=== PATIENT | male | born 1960 | race Caucasian/White ===

== ENCOUNTER 2017-08-27 16:37 | Emergency (ER) | payer OTHER, MEDICARE, MEDICAID ==
[~2017-08-27] VITALS: Ht 177242.5 cm; Wt 93.2 kg
[~2017-08-27 16:37] MED LIST: ALBU18HF2 INH; AMLO10TA PO; ASPI81TA52 PO; BUDE10.2 INH; CLOP75TA35 PO; CYCL-1 PO; FENO145T38 PO; METF500T PO; METO50TA17 PO; OMEP20CA10 PO; PANT40TA4 PO; ROSU40TA PO; SPIIN INH; TRAM50TA2 PO
[2017-08-27] MEDS ORDERED: HYDROcodone/acetaminophen 10/325mg tab PO ONE (19:40)
[2017-08-27] MEDS ORDERED: orphenadrine citrate 60mg/2ml inj. IM ONE (19:40)
[2017-08-27] MEDS ORDERED: ORPH100T2 PO (20:26)
[2017-08-27] MEDS ORDERED: HYDR-565 PO (20:26)
[2017-08-27 20:43] VITALS: BP 136/82
== END 2017-08-27 20:35 | disposition home or self-care (01) ==
LOC: ER 16:38
DX: S16.1XXA Strain of muscle, fascia and tendon at neck level, initial encounter (principal); S40.012A Contusion of left shoulder, initial encounter; G89.29 Other chronic pain; J44.9 Chronic obstructive pulmonary disease, unspecified; I25.10 Atherosclerotic heart disease of native coronary artery without angina pectoris; K21.9 Gastro-esophageal reflux disease without esophagitis; E11.9 Type 2 diabetes mellitus without complications; E78.00 Pure hypercholesterolemia, unspecified; I25.2 Old myocardial infarction; Z98.890 Other specified postprocedural states; Z79.82 Long term (current) use of aspirin; Z79.84 Long term (current) use of oral hypoglycemic drugs; Z79.899 Other long term (current) drug therapy; Z91.030 Bee allergy status; W11.XXXA Fall on and from ladder, initial encounter; Y93.89 Activity, other specified; Y92.89 Other specified places as the place of occurrence of the external cause; Y99.8 Other external cause status
CPT/HCPCS: 73030; 96372; 99284; J2360

== ENCOUNTER 2017-08-28 00:54 | Emergency (ER) | payer OTHER, MEDICARE, MEDICAID ==
[~2017-08-28] VITALS: Ht 160 cm; Wt 83.9 kg
[~2017-08-28 00:54] MED LIST changes: +HYDR-565 PO; +ORPH100T2 PO
[2017-08-28 00:59] VITALS: BP 167/98
[2017-08-28] MEDS ORDERED: ketorolac trometh. 30mg/ml inj. IM ONE (01:10)
== END 2017-08-28 01:58 | disposition home or self-care (01) ==
LOC: ER 00:54
DX: S46.812D Strain of other muscles, fascia and tendons at shoulder and upper arm level, left arm, subsequent encounter (principal); G89.29 Other chronic pain; I10 Essential (primary) hypertension; J44.9 Chronic obstructive pulmonary disease, unspecified; I25.10 Atherosclerotic heart disease of native coronary artery without angina pectoris; K21.9 Gastro-esophageal reflux disease without esophagitis; E11.9 Type 2 diabetes mellitus without complications; E78.00 Pure hypercholesterolemia, unspecified; I25.2 Old myocardial infarction; Z98.890 Other specified postprocedural states; Z79.82 Long term (current) use of aspirin; Z79.84 Long term (current) use of oral hypoglycemic drugs; Z79.899 Other long term (current) drug therapy; Z91.030 Bee allergy status; W11.XXXD Fall on and from ladder, subsequent encounter
CPT/HCPCS: 96372; 99283; A4565; J1885

== ENCOUNTER 2018-10-25 13:12 | Emergency (ER) | payer MEDICARE, MEDICAID, OTHER ==
[~2018-10-25] VITALS: Ht 160 cm; Wt 71.8 kg
[~2018-10-25 13:12] MED LIST changes: +CHOL400T PO; -CYCL-1 PO; +FLO0.4C PO; -HYDR-565 PO; +MULT1TAB74 PO; -OMEP20CA10 PO; -ORPH100T2 PO; +RANO500T3 PO
[2018-10-25 14:07] LABS: BASOPHILS % (AUTO) 0.8 % (0-1); EOSINOPHILS # (AUTO) 0.1 X10'3 (0-0.9); EOSINOPHILS % (AUTO) 1.2 % (0-6); HEMATOCRIT 39.1 % (42.0-52.0); HEMOGLOBIN 12.9 g/dl (14.0-17.9); LYMPHOCYTES # (AUTO) 1.7 X10'3 (1.1-4.8); LYMPHOCYTES % (AUTO) 28.3 % (21-51); MEAN CORPUSCULAR HEMOGLOBIN 28.8 PG (27.0-31.0); MEAN CORPUSCULAR HGB CONC 33.1 g/dL (33.0-36.5); MEAN CORPUSCULAR VOLUME 87.2 FL (78-98); MEAN PLATELET VOLUME 7.9 FL (7.4-10.4); MONOCYTES # (AUTO) 0.4 X10'3 (0-0.9); MONOCYTES % (AUTO) 6.3 % (2-12); NEUTROPHILS # (AUTO) 3.8 X10'3 (1.8-7.7); NEUTROPHILS % (AUTO) 63.4 % (42-75); PLATELET COUNT 415 X10'3 (140-440); RED BLOOD COUNT 4.49 X10'6 (4.70-6.10); RED CELL DISTRIBUTION WIDTH 13.7 % (11.5-14.5); WHITE BLOOD COUNT 5.9 X10'3 (4.5-11.0)
[2018-10-25 14:09] LABS: ALANINE AMINOTRANSFERASE 22 U/L (12-78); ALKALINE PHOSPHATASE 54 IU/L (46-116); ANION GAP 12 (8-16); ASPARTATE AMINO TRANSFERASE 20 U/L (10-37); BILIRUBIN,TOTAL 0.3 MG/DL (0.1-1.0); BLOOD UREA NITROGEN 18 MG/DL (7-18); BUN/CREATININE RATIO 17.1 (5.4-32.0); CALCIUM 9.6 MG/DL (8.5-10.1); CHLORIDE 102 MMOL/L (99-107); CREATININE 1.05 MG/DL (0.60-1.10); GLUCOSE 101 MG/DL (70-104); POTASSIUM 3.5 MMOL/L (3.5-5.1); SODIUM 139 MMOL/L (135-145); TOTAL CARBON DIOXIDE 25.2 MMOL/L (24-32); TOTAL PROTEIN 8.1 G/DL (6.4-8.2); eGFR 73 ML/MIN
[2018-10-25 14:11] LABS: PARTIAL THROMBOPLASTIN TIME 30 SECONDS (22-32); PROTHROMBIN TIME 10.3 SECONDS (9.0-12.0)
[2018-10-25] MEDS ORDERED: HYDROcodone/acetaminophen 5mg/325mg tablet PO ONE (15:50)
[2018-10-25 16:04] LABS: D-DIMER 1.09 MG/L FEU (0-0.50)
[2018-10-25] MEDS ORDERED: normal saline 1000ML IV soln IVB ONE (16:30)
[2018-10-25 17:09] LABS: CLARITY,URINE CLOUDY (Clear); COLOR,URINE STRAW (Yellow); GLUCOSE, URINE NEGATIVE (Neg); KETONES,URINE NEGATIVE (Neg); LEUKOCYTE ESTERASE ,URINE NEGATIVE (Neg); NITRITES, URINE NEGATIVE (Neg); OCCULT BLOOD,URINE NEGATIVE (Neg); PROTEIN,URINE NEGATIVE (Neg); UA COLLECTION TYPE CLN CATCH MIDSTREAM
[2018-10-25 17:15] LABS: SQUAMOUS EPITHELIAL CELL,UR FEW /LPF (FEW); TRANSITIONAL EPI CELLS,URINE FEW /HPF
[2018-10-25 17:16] LABS: COARSE GRANULAR CAST 0-3 /LPF (NEGATIVE)
[2018-10-25 17:17] LABS: AMORPHOUS PHOSPHATES 4+; BACTERIA,URINE FEW /HPF (Neg); MUCUS STRANDS FEW /LPF (Neg); RBC,URINE 0-2 /HPF (0-2); WBC,URINE NONE SEEN /HPF (0-4)
[2018-10-25] MEDS ORDERED: iohexol 350MG/ML 100ml bottle IV ONE (17:20)
--- NOTE | 2018-10-25 17:26 | NUR ---
pt out to ct via wheelchair with industrial engineering director
[2018-10-25] MEDS ORDERED: HYDR-4383 PO (18:15)
[2018-10-25] MEDS ORDERED: DOXY100C43 PO (18:15)
[2018-10-25] MEDS ORDERED: CefTRIAXone 250MG IM Kit w/LIDOcaine IM ONE (18:25)
[2018-10-25 19:32] VITALS: BP 143/78
== END 2018-10-25 19:34 | disposition home or self-care (01) ==
LOC: ER 13:15
DX: R07.89 Other chest pain (principal); N45.1 Epididymitis; G89.18 Other acute postprocedural pain; I25.119 Atherosclerotic heart disease of native coronary artery with unspecified angina pectoris; E78.00 Pure hypercholesterolemia, unspecified; I10 Essential (primary) hypertension; I25.2 Old myocardial infarction; J44.9 Chronic obstructive pulmonary disease, unspecified; K21.9 Gastro-esophageal reflux disease without esophagitis; E11.9 Type 2 diabetes mellitus without complications; G89.29 Other chronic pain; Z98.61 Coronary angioplasty status; Z98.890 Other specified postprocedural states; Z91.030 Bee allergy status; Z79.82 Long term (current) use of aspirin; Z79.84 Long term (current) use of oral hypoglycemic drugs; Z79.899 Other long term (current) drug therapy; Z56.0 Unemployment, unspecified
CPT/HCPCS: 36415; 71045; 71275; 80053; 81001; 84484; 85025; 85379; 85610; 85730; 93005; 96360; 96372; 99284; J0696; J7030; Q9967

== ENCOUNTER 2019-01-26 20:58 | Emergency (ER) | payer MEDICARE, MEDICAID, OTHER ==
[~2019-01-26] VITALS: Ht 160 cm; Wt 80.0 kg
[~2019-01-26 20:58] MED LIST changes: +HYDR-4383 PO
[2019-01-26 21:03] VITALS: BP 171/104
[2019-01-26] MEDS ORDERED: HYDROcodone/acetaminophen 5mg/325mg tablet PO ONE (21:25)
== END 2019-01-26 21:44 | disposition home or self-care (01) ==
LOC: ER 20:58
DX: R10.31 Right lower quadrant pain (principal); I25.10 Atherosclerotic heart disease of native coronary artery without angina pectoris; E78.00 Pure hypercholesterolemia, unspecified; I10 Essential (primary) hypertension; I25.2 Old myocardial infarction; J44.9 Chronic obstructive pulmonary disease, unspecified; K21.9 Gastro-esophageal reflux disease without esophagitis; E11.9 Type 2 diabetes mellitus without complications; G89.29 Other chronic pain; Z98.890 Other specified postprocedural states; Z87.891 Personal history of nicotine dependence; Z91.030 Bee allergy status; Z79.82 Long term (current) use of aspirin; Z79.84 Long term (current) use of oral hypoglycemic drugs; Z79.899 Other long term (current) drug therapy; Z56.0 Unemployment, unspecified
CPT/HCPCS: 99282; 99283

== ENCOUNTER 2019-03-09 16:43 | Emergency (ER) | payer MEDICARE, MEDICAID, OTHER ==
[~2019-03-09] VITALS: Ht 160 cm; Wt 69.5 kg
[2019-03-09 16:48] VITALS: BP 151/78
[2019-03-09] MEDS ORDERED: orphenadrine citrate 60mg/2ml inj. IM ONE (17:50)
[2019-03-09] MEDS ORDERED: ketorolac tromethamine 15mg/ml inj. IM ONE (17:50)
[2019-03-09] MEDS ORDERED: METH500T PO (17:51)
== END 2019-03-09 18:27 | disposition home or self-care (01) ==
LOC: ER 16:43
DX: S39.012A Strain of muscle, fascia and tendon of lower back, initial encounter (principal); I25.10 Atherosclerotic heart disease of native coronary artery without angina pectoris; E78.00 Pure hypercholesterolemia, unspecified; I10 Essential (primary) hypertension; I25.2 Old myocardial infarction; J44.9 Chronic obstructive pulmonary disease, unspecified; K21.9 Gastro-esophageal reflux disease without esophagitis; E11.9 Type 2 diabetes mellitus without complications; G89.29 Other chronic pain; F41.9 Anxiety disorder, unspecified; Z56.0 Unemployment, unspecified; Z95.5 Presence of coronary angioplasty implant and graft; Z98.890 Other specified postprocedural states; Z91.030 Bee allergy status; Z79.82 Long term (current) use of aspirin; Z79.899 Other long term (current) drug therapy; X50.1XXA Overexertion from prolonged static or awkward postures, initial encounter; Y93.89 Activity, other specified; Y92.89 Other specified places as the place of occurrence of the external cause; Y99.9 Unspecified external cause status
CPT/HCPCS: 96372; 99284; J1885; J2360

== ENCOUNTER 2020-04-17 17:17 | Emergency (ER) | payer OTHER, MEDICARE, MEDICAID ==
[~2020-04-17] VITALS: Ht 172.7 cm; Wt 90.0 kg
[~2020-04-17 17:17] MED LIST changes: +METH500T PO; +MULT-620 PO; -MULT1TAB74 PO
[2020-04-17] MEDS ORDERED: METH-360 PO (18:29)
[2020-04-17] MEDS ORDERED: NAPR-56 PO (18:29)
[2020-04-17] MEDS ORDERED: ketorolac tromethamine 15mg/ml inj. IV ONE (18:30)
[2020-04-17] MEDS ORDERED: orphenadrine citrate 60mg/2ml inj. IM ONE (18:30)
--- NOTE | 2020-04-17 18:36 | NUR ---
Per dimple [place] collar removed.
[2020-04-17 18:55] VITALS: BP 124/86
== END 2020-04-17 18:56 | disposition home or self-care (01) ==
LOC: ER 17:18
DX: S33.5XXA Sprain of ligaments of lumbar spine, initial encounter (principal); I25.10 Atherosclerotic heart disease of native coronary artery without angina pectoris; E78.00 Pure hypercholesterolemia, unspecified; I10 Essential (primary) hypertension; I25.2 Old myocardial infarction; J44.9 Chronic obstructive pulmonary disease, unspecified; K21.9 Gastro-esophageal reflux disease without esophagitis; E11.9 Type 2 diabetes mellitus without complications; G89.29 Other chronic pain; F41.9 Anxiety disorder, unspecified; Z98.890 Other specified postprocedural states; Z72.89 Other problems related to lifestyle; Z56.0 Unemployment, unspecified; Z91.030 Bee allergy status; Z79.82 Long term (current) use of aspirin; Z79.899 Other long term (current) drug therapy; W18.39XA Other fall on same level, initial encounter; Y93.A3 Activity, aerobic and step exercise; Y92.89 Other specified places as the place of occurrence of the external cause; Y99.8 Other external cause status
CPT/HCPCS: 72125; 72128; 72131; 96372; 96374; 99285; J1885; J2360

== ENCOUNTER 2020-05-14 16:15 | Emergency (ER) | payer OTHER, MEDICARE, MEDICAID ==
[~2020-05-14] VITALS: Ht 160 cm; Wt 79.7 kg
[~2020-05-14 16:15] MED LIST changes: +METH-360 PO; +NAPR-56 PO; -PANT40TA4 PO; +PANT40TA54 PO
[2020-05-14 16:43] LABS: BASOPHILS # (AUTO) 0.1 X10'3 (0-0.2); BASOPHILS % (AUTO) 1.3 % (0-1); EOSINOPHILS # (AUTO) 0.5 X10'3 (0-0.9); EOSINOPHILS % (AUTO) 5.6 % (0-6); HEMATOCRIT 42.2 % (42.0-52.0); HEMOGLOBIN 14.1 g/dl (14.0-17.9); LYMPHOCYTES # (AUTO) 2.4 X10'3 (1.1-4.8); MEAN CORPUSCULAR HEMOGLOBIN 29.5 PG (27.0-31.0); MEAN CORPUSCULAR HGB CONC 33.4 g/dL (33.0-36.5); MEAN CORPUSCULAR VOLUME 88.2 FL (78-98); MEAN PLATELET VOLUME 8.1 FL (7.4-10.4); MONOCYTES # (AUTO) 0.5 X10'3 (0-0.9); MONOCYTES % (AUTO) 5.9 % (2-12); NEUTROPHILS # (AUTO) 5.3 X10'3 (1.8-7.7); NEUTROPHILS % (AUTO) 60.2 % (42-75); PLATELET COUNT 317 X10'3 (140-440); RED BLOOD COUNT 4.79 X10'6 (4.70-6.10); RED CELL DISTRIBUTION WIDTH 13.8 % (11.5-14.5); WHITE BLOOD COUNT 8.8 X10'3 (4.5-11.0)
[2020-05-14] MEDS ORDERED: ketorolac trometh. 30mg/ml inj. IM ONE (16:45)
[2020-05-14 17:00] LABS: ALANINE AMINOTRANSFERASE 28 U/L (12-78); ALBUMIN 4.2 G/DL (3.4-5.0); ALBUMIN/GLOBULIN RATIO 1.2 (1.1-1.5); ALKALINE PHOSPHATASE 39 IU/L (46-116); ANION GAP 8 (8-16); ASPARTATE AMINO TRANSFERASE 24 U/L (10-37); BILIRUBIN,TOTAL 0.3 MG/DL (0.1-1.0); BLOOD UREA NITROGEN 17 MG/DL (7-18); BUN/CREATININE RATIO 13.4 (5.4-32.0); CALCIUM 8.9 MG/DL (8.5-10.1); CHLORIDE 105 MMOL/L (99-107); CREATININE 1.27 MG/DL (0.60-1.10); GLUCOSE 159 MG/DL (70-104); POTASSIUM 3.4 MMOL/L (3.5-5.1); SODIUM 139 MMOL/L (135-145); TOTAL CARBON DIOXIDE 25.7 MMOL/L (24-32); TOTAL PROTEIN 7.6 G/DL (6.4-8.2); eGFR 58 ML/MIN
[2020-05-14] MEDS ORDERED: HYDROcodone/acetaminophen 10/325mg tab PO ONE (17:25)
[2020-05-14 17:34] VITALS: BP 134/78
== END 2020-05-14 17:40 | disposition home or self-care (01) ==
LOC: ER 16:15
DX: R07.89 Other chest pain (principal); R11.2 Nausea with vomiting, unspecified; R06.02 Shortness of breath; I25.10 Atherosclerotic heart disease of native coronary artery without angina pectoris; E78.00 Pure hypercholesterolemia, unspecified; I10 Essential (primary) hypertension; I25.2 Old myocardial infarction; K21.9 Gastro-esophageal reflux disease without esophagitis; E11.9 Type 2 diabetes mellitus without complications; G89.29 Other chronic pain; F41.9 Anxiety disorder, unspecified; Z98.61 Coronary angioplasty status; Z98.890 Other specified postprocedural states; Z56.0 Unemployment, unspecified; Z91.030 Bee allergy status; Z79.82 Long term (current) use of aspirin; Z79.899 Other long term (current) drug therapy
CPT/HCPCS: 36415; 71045; 80053; 83880; 84484; 85025; 93005; 96372; 99285; J1885

== ENCOUNTER 2021-03-02 19:11 | Emergency (ER) | payer OTHER, MEDICARE, MEDICAID ==
[~2021-03-02] VITALS: Ht 160 cm; Wt 81.8 kg
[~2021-03-02 19:11] MED LIST changes: +CLOP75TA34 PO; -CLOP75TA35 PO; -NAPR-56 PO
[2021-03-02 19:13] VITALS: BP 117/72
[2021-03-02] MEDS ORDERED: ketorolac trometh. 30mg/ml inj. IM ONE (20:40)
== END 2021-03-02 21:12 | disposition home or self-care (01) ==
LOC: ER 19:12
DX: S93.401A Sprain of unspecified ligament of right ankle, initial encounter (principal); I10 Essential (primary) hypertension; E78.5 Hyperlipidemia, unspecified; J44.9 Chronic obstructive pulmonary disease, unspecified; I25.10 Atherosclerotic heart disease of native coronary artery without angina pectoris; E11.9 Type 2 diabetes mellitus without complications; Z95.5 Presence of coronary angioplasty implant and graft; Z87.891 Personal history of nicotine dependence; Z91.030 Bee allergy status; Z79.82 Long term (current) use of aspirin; Z79.899 Other long term (current) drug therapy; Z56.0 Unemployment, unspecified; W18.30XA Fall on same level, unspecified, initial encounter; Z91.81 History of falling; Y93.89 Activity, other specified; Y92.89 Other specified places as the place of occurrence of the external cause; Y99.8 Other external cause status
CPT/HCPCS: 73610; 96372; 99284; J1885

== ENCOUNTER 2021-10-07 13:28 | Emergency (ER) | payer OTHER, MEDICARE, MEDICAID ==
[~2021-10-07] VITALS: Ht 160 cm; Wt 69.5 kg
[2021-10-07 14:31] VITALS: BP 148/127
[2021-10-07] MEDS ORDERED: iohexol 350MG/ML 100ml bottle IV ONE (14:45)
[2021-10-07] MEDS ORDERED: MESSAGE TO NURSING PO NR (14:50)
[2021-10-07 15:22] LABS: BASOPHILS % (AUTO) 0.3 % (0-1); EOSINOPHILS # (AUTO) 0.9 X10'3 (0-0.9); HEMATOCRIT 45.2 % (42.0-52.0); HEMOGLOBIN 15.2 g/dl (14.0-17.9); LYMPHOCYTES # (AUTO) 1.9 X10'3 (1.1-4.8); LYMPHOCYTES % (AUTO) 13.4 % (21-51); MEAN CORPUSCULAR HEMOGLOBIN 29.1 PG (27.0-31.0); MEAN CORPUSCULAR HGB CONC 33.7 g/dL (33.0-36.5); MEAN CORPUSCULAR VOLUME 86.2 FL (78-98); MEAN PLATELET VOLUME 8.2 FL (7.4-10.4); MONOCYTES # (AUTO) 0.8 X10'3 (0-0.9); MONOCYTES % (AUTO) 5.8 % (2-12); NEUTROPHILS # (AUTO) 10.8 X10'3 (1.8-7.7); NEUTROPHILS % (AUTO) 74.5 % (42-75); PLATELET COUNT 358 X10'3 (140-440); RED BLOOD COUNT 5.24 X10'6 (4.70-6.10); RED CELL DISTRIBUTION WIDTH 14.2 % (11.5-14.5); WHITE BLOOD COUNT 14.5 X10'3 (4.5-11.0)
[2021-10-07 15:38] LABS: ALANINE AMINOTRANSFERASE 24 U/L (12-78); ALBUMIN 4.5 G/DL (3.4-5.0); ALBUMIN/GLOBULIN RATIO 1.1 (1.1-1.5); ALKALINE PHOSPHATASE 61 IU/L (46-116); ANION GAP 10 (8-16); ASPARTATE AMINO TRANSFERASE 22 U/L (10-37); BILIRUBIN,TOTAL 0.4 MG/DL (0.1-1.0); BLOOD UREA NITROGEN 16 MG/DL (7-18); BUN/CREATININE RATIO 18.2 (5.4-32.0); CALCIUM 9.7 MG/DL (8.5-10.1); CHLORIDE 106 MMOL/L (99-107); CREATININE 0.88 MG/DL (0.60-1.10); GLUCOSE 98 MG/DL (70-104); POTASSIUM 3.8 MMOL/L (3.5-5.1); SODIUM 143 MMOL/L (135-145); TOTAL CARBON DIOXIDE 27.3 MMOL/L (24-32); TOTAL PROTEIN 8.7 G/DL (6.4-8.2); eGFR 88 ML/MIN
[2021-10-07 15:42] LABS: LIPASE 100 U/L (73-393)
[2021-10-07 16:36] LABS: CLARITY,URINE CLEAR (Clear); GLUCOSE, URINE NEGATIVE (Neg); KETONES,URINE NEGATIVE (Neg); LEUKOCYTE ESTERASE ,URINE NEGATIVE (Neg); NITRITES, URINE NEGATIVE (Neg); OCCULT BLOOD,URINE NEGATIVE (Neg); PROTEIN,URINE NEGATIVE (Neg); UROBILINOGEN,URINE 0.2 E.U/dL (0.2-1.0)
[2021-10-07 16:39] LABS: COLOR,URINE STRAW (Yellow); UA COLLECTION TYPE CLN CATCH MIDSTREAM
== END 2021-10-07 17:54 | disposition home or self-care (01) ==
LOC: ER 13:29
DX: R10.84 Generalized abdominal pain (principal); R10.32 Left lower quadrant pain; R11.2 Nausea with vomiting, unspecified; I25.10 Atherosclerotic heart disease of native coronary artery without angina pectoris; E78.00 Pure hypercholesterolemia, unspecified; I10 Essential (primary) hypertension; I25.2 Old myocardial infarction; J44.9 Chronic obstructive pulmonary disease, unspecified; K21.9 Gastro-esophageal reflux disease without esophagitis; E11.9 Type 2 diabetes mellitus without complications; G89.29 Other chronic pain; Z56.0 Unemployment, unspecified; Z72.89 Other problems related to lifestyle; Z95.5 Presence of coronary angioplasty implant and graft; Z91.030 Bee allergy status; Z79.82 Long term (current) use of aspirin; Z79.899 Other long term (current) drug therapy
CPT/HCPCS: 36415; 71275; 74174; 80053; 81003; 83690; 84484; 85025; 85610; 93005; 99285; Q9967

== ENCOUNTER 2022-04-19 07:24 | Emergency (ER) | payer OTHER, MEDICARE, MEDICAID ==
[~2022-04-19] VITALS: Ht 160 cm; Wt 72.7 kg
[2022-04-19] MEDS ORDERED: ketorolac trometh inj. 60 MG/2 ML VIAL IM ONE (11:15)
[2022-04-19] MEDS ORDERED: LIDOcaine 5% patch TP STA (11:15)
[2022-04-19] MEDS ORDERED: CYCL5TAB PO (11:29)
[2022-04-19 13:19] VITALS: BP 120/81
== END 2022-04-19 13:21 | disposition home or self-care (01) ==
LOC: ER 07:24
DX: G89.29 Other chronic pain (principal); M54.2 Cervicalgia; M54.59 Other low back pain; I11.9 Hypertensive heart disease without heart failure; J44.9 Chronic obstructive pulmonary disease, unspecified; K21.9 Gastro-esophageal reflux disease without esophagitis; F41.9 Anxiety disorder, unspecified; E11.9 Type 2 diabetes mellitus without complications; Z91.030 Bee allergy status; Z79.899 Other long term (current) drug therapy; Z79.82 Long term (current) use of aspirin
CPT/HCPCS: 96372; 99284; J1885

== ENCOUNTER 2022-10-19 21:32 | Emergency (ER) | payer OTHER, MEDICARE, MEDICAID ==
[~2022-10-19] VITALS: Ht 160 cm; Wt 76.4 kg
[~2022-10-19 21:32] MED LIST changes: +CYCL5TAB PO
[2022-10-19 21:33] VITALS: BP 171/93
[2022-10-19 22:11] LABS: BASOPHILS # (AUTO) 0.1 X10'3 (0-0.2); EOSINOPHILS # (AUTO) 0.2 X10'3 (0-0.9); EOSINOPHILS % (AUTO) 2.3 % (0-6); HEMATOCRIT 44.1 % (42.0-52.0); HEMOGLOBIN 14.5 g/dl (14.0-17.9); LYMPHOCYTES # (AUTO) 2.6 X10'3 (1.1-4.8); LYMPHOCYTES % (AUTO) 31.2 % (21-51); MEAN CORPUSCULAR HEMOGLOBIN 28.2 PG (27.0-31.0); MEAN CORPUSCULAR HGB CONC 32.8 g/dL (33.0-36.5); MEAN CORPUSCULAR VOLUME 85.8 FL (78-98); MEAN PLATELET VOLUME 8.3 FL (7.4-10.4); MONOCYTES # (AUTO) 0.9 X10'3 (0-0.9); MONOCYTES % (AUTO) 10.5 % (2-12); NEUTROPHILS # (AUTO) 4.6 X10'3 (1.8-7.7); PLATELET COUNT 263 X10'3 (140-440); RED BLOOD COUNT 5.14 X10'6 (4.70-6.10); WHITE BLOOD COUNT 8.4 X10'3 (4.5-11.0)
[2022-10-19 22:19] LABS: ALANINE AMINOTRANSFERASE 26 U/L (12-78); ALBUMIN 4.4 G/DL (3.4-5.0); ALBUMIN/GLOBULIN RATIO 1.2 (1.1-1.5); ALKALINE PHOSPHATASE 83 IU/L (46-116); ANION GAP 13 (8-16); ASPARTATE AMINO TRANSFERASE 21 U/L (10-37); BILIRUBIN,TOTAL 0.2 MG/DL (0.1-1.0); BLOOD UREA NITROGEN 18 MG/DL (7-18); BUN/CREATININE RATIO 14.9 (5.4-32.0); CALCIUM 9.3 MG/DL (8.5-10.1); CHLORIDE 102 MMOL/L (99-107); CREATININE 1.21 MG/DL (0.60-1.10); GLUCOSE 105 MG/DL (70-104); POTASSIUM 3.7 MMOL/L (3.5-5.1); SODIUM 142 MMOL/L (135-145); TOTAL CARBON DIOXIDE 27.2 MMOL/L (24-32); eGFR 61 ML/MIN
[2022-10-19 22:27] LABS: MAGNESIUM 1.9 MG/DL (1.5-2.4)
== END 2022-10-20 00:34 | disposition home or self-care (01) ==
LOC: ER 21:32
DX: M79.602 Pain in left arm (principal); E78.00 Pure hypercholesterolemia, unspecified; I10 Essential (primary) hypertension; J44.9 Chronic obstructive pulmonary disease, unspecified; K21.9 Gastro-esophageal reflux disease without esophagitis; E11.9 Type 2 diabetes mellitus without complications; G89.29 Other chronic pain; M54.50 Low back pain, unspecified; Z91.030 Bee allergy status; Z56.0 Unemployment, unspecified
CPT/HCPCS: 36415; 71045; 80053; 83735; 83880; 84484; 85025; 93005; 99285

== ENCOUNTER 2023-04-06 18:12 | Emergency (ER) | payer OTHER, MEDICARE, MEDICAID ==
[~2023-04-06] VITALS: Ht 160 cm; Wt 75.0 kg
[2023-04-06] MEDS ORDERED: HYDROcodone/acetaminophen 10/325mg tab PO ONE (19:00)
[2023-04-06 19:10] VITALS: BP 173/96; PULSE 89; RESP 17; TEMP 99; O2SAT 97
[2023-04-06] MEDS ORDERED: IBUP-1986 PO (19:18)
[2023-04-06] MEDS ORDERED: TRAM50TA2 PO (19:18)
[2023-04-06] MEDS ORDERED: LIDO700A32 TOP (19:18)
[2023-04-06] MEDS ORDERED: cyclobenzaprine 10mg tablet PO ONE (21:05)
[2023-04-06] MEDS ORDERED: ketorolac trometh inj. 60 MG/2 ML VIAL IM ONE (21:10)
== END 2023-04-06 21:28 | disposition home or self-care (01) ==
LOC: ER 18:13
DX: G89.29 Other chronic pain (principal); M54.9 Dorsalgia, unspecified; M54.2 Cervicalgia; V87.7XXA Person injured in collision between other specified motor vehicles (traffic), initial encounter; Y93.89 Activity, other specified; Y92.89 Other specified places as the place of occurrence of the external cause; Y99.8 Other external cause status
CPT/HCPCS: 72125; 96372; 99285; J1885

== ENCOUNTER 2023-08-23 07:39 | Emergency (ER) | payer OTHER, MEDICARE, MEDICAID ==
[~2023-08-23] VITALS: Ht 160 cm; Wt 73.6 kg
[~2023-08-23 07:39] MED LIST changes: -ALBU18HF2 INH; -AMLO10TA PO; -BUDE10.2 INH; +CARV25TA56 PO; +CHLO25TA68 PO; -CLOP75TA34 PO; +EZET10TA6 PO; -FENO145T38 PO; -FLO0.4C PO; -HYDR-4383 PO; +LISI1TAB49 PO; +METF-900 PO; -METF500T PO; -METH-360 PO; +METH-604 PO; -METH500T PO; -METO50TA17 PO; -MULT-620 PO; +NITR0.4T48 SL; -RANO500T3 PO; -SPIIN INH; +TIOT4MIS3 IH; +[UNRECOGNIZED DRUG - OTHER] PO
[2023-08-23 08:27] VITALS: TEMP 97.8
[2023-08-23 08:56] LABS: ALANINE AMINOTRANSFERASE 32 U/L (12-78); ALBUMIN 4.1 G/DL (3.4-5.0); ALKALINE PHOSPHATASE 58 IU/L (46-116); ANION GAP 9 (8-16); ASPARTATE AMINO TRANSFERASE 17 U/L (10-37); BILIRUBIN,TOTAL 0.5 MG/DL (0.1-1.0); BLOOD UREA NITROGEN 14 MG/DL (7-18); BUN/CREATININE RATIO 17.3 (10.0-20.0); CALCIUM 9.8 MG/DL (8.5-10.1); CHLORIDE 99 MMOL/L (99-107); CREATININE 0.81 MG/DL (0.60-1.10); GLUCOSE 114 MG/DL (70-104); POTASSIUM 3.8 MMOL/L (3.5-5.1); SODIUM 136 MMOL/L (135-145); TOTAL CARBON DIOXIDE 27.7 MMOL/L (24-32); TOTAL PROTEIN 8.4 G/DL (6.4-8.2); eCRCL 75 ML/MIN; eGFR > 90 ML/MIN
[2023-08-23 08:57] LABS: BASOPHILS # (AUTO) 0.2 X10'3 (0-0.2); EOSINOPHILS # (AUTO) 0.1 X10'3 (0-0.9); EOSINOPHILS % (AUTO) 1.5 % (0-6); HEMATOCRIT 44.5 % (42.0-52.0); HEMOGLOBIN 14.8 g/dl (14.0-17.9); LYMPHOCYTES # (AUTO) 1.4 X10'3 (1.1-4.8); LYMPHOCYTES % (AUTO) 15.4 % (21-51); MEAN CORPUSCULAR HEMOGLOBIN 29.1 PG (27.0-31.0); MEAN CORPUSCULAR HGB CONC 33.3 g/dL (33.0-36.5); MEAN CORPUSCULAR VOLUME 87.3 FL (78-98); MEAN PLATELET VOLUME 7.8 FL (7.4-10.4); MONOCYTES # (AUTO) 0.7 X10'3 (0-0.9); MONOCYTES % (AUTO) 7.6 % (2-12); NEUTROPHILS # (AUTO) 6.7 X10'3 (1.8-7.7); NEUTROPHILS % (AUTO) 73.5 % (42-75); PLATELET COUNT 225 X10'3 (140-440); RED CELL DISTRIBUTION WIDTH 13.9 % (11.5-14.5); WHITE BLOOD COUNT 9.2 X10'3 (4.5-11.0)
[2023-08-23 09:05] LABS: PRO BRAIN NATRIURETIC PEPTIDE 34 PG/ML (0-125)
[2023-08-23 09:08] LABS: APTT 32 SECONDS (22-32); PROTHROMBIN TIME 10.4 SECONDS (9.0-12.0)
[2023-08-23 09:34] LABS: AMYLASE 55 U/L (25-115); FREE T4 (FREE THYROXINE) 0.95 NG/DL (0.73-1.40); LIPASE 22 U/L (16-77)
[2023-08-23 09:36] LABS: THYROID STIMULATING HORMONE 0.99 ulU/ml (0.34-4.50)
[2023-08-23 10:07] LABS: BILIRUBIN,URINE NEGATIVE (Neg); CLARITY,URINE CLEAR (Clear); COLOR,URINE STRAW (Yellow); GLUCOSE, URINE NEGATIVE (Neg); KETONES,URINE NEGATIVE (Neg); LEUKOCYTE ESTERASE ,URINE NEGATIVE (Neg); NITRITES, URINE NEGATIVE (Neg); OCCULT BLOOD,URINE TRACE-INTACT (Neg); PH,URINE 5.5 (4.8-8.0); PROTEIN,URINE NEGATIVE (Neg); UA COLLECTION TYPE CLN CATCH MIDSTREAM; UROBILINOGEN,URINE 0.2 E.U/dL (0.2-1.0)
[2023-08-23 10:13] LABS: SQUAMOUS EPITHELIAL CELL,UR FEW /LPF (FEW)
[2023-08-23 10:14] LABS: BACTERIA,URINE FEW /HPF (Neg); RBC,URINE 0-2 /HPF (0-2); WBC,URINE 0-4 /HPF (0-4)
[2023-08-23] MEDS ORDERED: iohexol 300mg/ml 100ml inj. ONE (11:00)
[2023-08-23] MEDS ORDERED: mag hydrox/Alum hydrox/simeth 30ml oral suspension PO ONE (11:10)
[2023-08-23 13:27] VITALS: BP 135/81; PULSE 76; RESP 15; O2SAT 97
== END 2023-08-23 13:31 | disposition home or self-care (01) ==
LOC: ER 07:40
DX: K29.00 Acute gastritis without bleeding (principal); I25.10 Atherosclerotic heart disease of native coronary artery without angina pectoris; E78.00 Pure hypercholesterolemia, unspecified; I25.2 Old myocardial infarction; J44.9 Chronic obstructive pulmonary disease, unspecified; E11.9 Type 2 diabetes mellitus without complications; G89.29 Other chronic pain; Z95.5 Presence of coronary angioplasty implant and graft; Z56.0 Unemployment, unspecified; Z91.030 Bee allergy status; Z79.899 Other long term (current) drug therapy; Z79.82 Long term (current) use of aspirin; Z79.01 Long term (current) use of anticoagulants
CPT/HCPCS: 36415; 71045; 74177; 80053; 81001; 82150; 83690; 83880; 84439; 84443; 84484; 85025; 85610; 85730; 93005; 99285; Q9967; 70450; 70496; 70498

== ENCOUNTER 2023-11-05 14:51 | Emergency (ER) | payer OTHER, MEDICARE, MEDICAID ==
[~2023-11-05] VITALS: Ht 160 cm; Wt 76.6 kg
[2023-11-05 14:52] VITALS: BP 155/87; PULSE 84; TEMP 98; O2SAT 98
[2023-11-05 15:55] VITALS: RESP 18
[2023-11-05] MEDS: ketorolac tromethamine 15mg/ml inj. IM ONE (15:55)
== END 2023-11-05 16:06 | disposition home or self-care (01) ==
LOC: ER 14:51
DX: G89.29 Other chronic pain (principal); M54.9 Dorsalgia, unspecified; I50.9 Heart failure, unspecified; J44.9 Chronic obstructive pulmonary disease, unspecified; K21.9 Gastro-esophageal reflux disease without esophagitis; E78.00 Pure hypercholesterolemia, unspecified; I10 Essential (primary) hypertension; F41.9 Anxiety disorder, unspecified; V98.8XXA Other specified transport accidents, initial encounter; Y93.89 Activity, other specified; Y92.89 Other specified places as the place of occurrence of the external cause; Y99.8 Other external cause status
CPT/HCPCS: 96372; 99283; J1885; A6449

== ENCOUNTER 2024-02-06 21:54 | Emergency (ER) | payer OTHER, MEDICARE, MEDICAID ==
[~2024-02-06] VITALS: Ht 160 cm; Wt 77.3 kg
[~2024-02-06 21:54] MED LIST changes: -CYCL5TAB PO
[2024-02-06 21:58] VITALS: TEMP 97.7
[2024-02-06] MEDS: meclizine 12.5mg tablet PO ONE (22:17)
[2024-02-06 22:18] LABS: BASOPHILS # (AUTO) 0.1 X10'3 (0-0.2); BASOPHILS % (AUTO) 1.2 % (0-1); EOSINOPHILS # (AUTO) 0.2 X10'3 (0-0.9); HEMATOCRIT 41.5 % (42.0-52.0); LYMPHOCYTES # (AUTO) 2.8 X10'3 (1.1-4.8); LYMPHOCYTES % (AUTO) 26.7 % (21-51); MEAN CORPUSCULAR HEMOGLOBIN 29.1 PG (27.0-31.0); MEAN CORPUSCULAR HGB CONC 33.7 g/dL (33.0-36.5); MEAN CORPUSCULAR VOLUME 86.2 FL (78-98); MEAN PLATELET VOLUME 7.8 FL (7.4-10.4); MONOCYTES # (AUTO) 1.1 X10'3 (0-0.9); MONOCYTES % (AUTO) 10.7 % (2-12); NEUTROPHILS # (AUTO) 6.3 X10'3 (1.8-7.7); NEUTROPHILS % (AUTO) 59.4 % (42-75); PLATELET COUNT 289 X10'3 (140-440); RED BLOOD COUNT 4.81 X10'6 (4.70-6.10); RED CELL DISTRIBUTION WIDTH 13.7 % (11.5-14.5); WHITE BLOOD COUNT 10.5 X10'3 (4.5-11.0)
[2024-02-06 22:34] LABS: ALBUMIN 3.7 G/DL (3.4-5.0); ANION GAP 7 (8-16); BLOOD UREA NITROGEN 17 MG/DL (7-18); BUN/CREATININE RATIO 20.7 (10.0-20.0); CALCIUM 9.2 MG/DL (8.5-10.1); CHLORIDE 102 MMOL/L (99-107); CREATININE 0.82 MG/DL (0.60-1.10); GLUCOSE 116 MG/DL (70-104); PRO BRAIN NATRIURETIC PEPTIDE < 30 PG/ML (0-125); SODIUM 140 MMOL/L (135-145); TOTAL CARBON DIOXIDE 30.6 MMOL/L (24-32); eCRCL 74 ML/MIN; eGFR > 90 ML/MIN
[2024-02-06 22:37] LABS: POTASSIUM 4.3 MMOL/L (3.5-5.1)
[2024-02-06] MEDS ORDERED: nitroGLYCERIN 0.4mg SUBLingual tab SL PRN (23:05)
[2024-02-06] MEDS: ondansetron/PF 4mg/2ml inj IV ONE (23:13)
[2024-02-06] MEDS ORDERED: LISI1TAB51 PO (23:22)
[2024-02-06] MEDS ORDERED: NITR0.4T51 SL (23:24)
[2024-02-06] MEDS ORDERED: CHOL100053 PO (23:25)
[2024-02-07 00:31] VITALS: BP 137/80; PULSE 83; RESP 16; O2SAT 94
== END 2024-02-07 00:34 | disposition left against medical advice (07) ==
LOC: ER 21:55
DX: R07.89 Other chest pain (principal); E78.00 Pure hypercholesterolemia, unspecified; I10 Essential (primary) hypertension; J44.9 Chronic obstructive pulmonary disease, unspecified; K21.9 Gastro-esophageal reflux disease without esophagitis; E11.9 Type 2 diabetes mellitus without complications; Z91.030 Bee allergy status; Z79.82 Long term (current) use of aspirin; Z79.899 Other long term (current) drug therapy
CPT/HCPCS: 36415; 71045; 80048; 83880; 84484; 85025; 93005; 96374; 99285; J2405; J8597

== ENCOUNTER 2025-02-03 08:15 | Outpatient (CLI) | payer MEDICARE, MEDICAID ==
[~2025-02-03 08:15] MED LIST changes: -CHLO25TA68 PO; +CHOL100053 PO; -CHOL400T PO; -LISI1TAB49 PO; +LISI1TAB51 PO; -METF-900 PO; +METH-1026 PO; -METH-604 PO; -NITR0.4T48 SL; +NITR0.4T51 SL; -[UNRECOGNIZED DRUG - OTHER] PO
--- NOTE | 2025-02-03 09:26 | RADIOLOGY REPORT ---
CT Chest without intravenous contrast INDICATION: ENCNTR SCREEN FOR MALIGNANT NEOPLASM OF RESPIRATORY ORGANS TECHNIQUE: Multidetector spiral CT of the chest was performed from the lung apices to the upper abdom en. Axial, coronal and sagittal multiplanar reformats were performed. Radiation dose : Chest: CTDI volume is 2 mGy. Dose-length product is 109 mGy*cm The dose indicators for CT are the volume computed tomography (CT) dose index (CTDIvol) and the dose length product (DLP), and are measured in units of mGy and mGy-cm, respectively. These indicators are not patient dose, but values generated from the CT scanner acquisition factors. The report includes radiation exposure data for exposures received during this examination. Comparison: None Findings: Lower neck: Normal thyroid. Lungs: No focal consolidation. Atelectasis and scarring in the lung bases. Heart/Vascular Structures: Normal heart size. No pericardial effusion. Severe coronary artery calcifi cation. Lymph Nodes: No adenopathy Pleura: No pleural effusion or significant pneumothorax. Musculoskeletal: No acute osseous abnormality. Soft tissues: Normal. Upper abdomen: Limited portions of the upper abdomen are unremarkable. IMPRESSION: 1. No suspicious pulmonary nodule. Lung rads 1-negative. Radiation optimization: All CT scans at this facility use at least one of these dose optimization neeraj hniques: Automated exposure control mA and/or kV adjustment per patient size (includes targeted exams where dose is matched to clinical indication) or iterative reconstruction. HS:Y
== END 2025-02-03 23:59 | disposition home or self-care (01) ==
LOC: RAD 08:15
PROVIDERS: ATTEND General Practice
DX: Z12.2 Encounter for screening for malignant neoplasm of respiratory organs (principal); J98.11 Atelectasis; J98.4 Other disorders of lung; Z87.891 Personal history of nicotine dependence
CPT/HCPCS: 71271

== ENCOUNTER 2025-03-18 06:44 | Inpatient (IN) | payer OTHER, MEDICARE, MEDICAID ==
[2025-03-18] VITALS (7 sets, daily range): BP systolic 96–156; BP diastolic 68–87; PULSE 72–81; RESP 14–16; TEMP 97.1–97.6; O2SAT 95–98
[~2025-03-18] VITALS: Ht 160 cm; Wt 76.9 kg
--- NOTE | 2025-03-18 06:50 | ELECTROCARDIOGRAPH REPORT ---
[facility] Test Date: 2025-03-18 Test Time: 06:48:15 Pat Name: QUYEN MC Department: [facility] Patient ID: [facility]-[id number] Room: [place] [address] Gender: M Housekeeping Lead: : 1960 Requested By: SAM ADHIKARI Order Number: [id number] Reading MD: Dr. César Jean Baptiste Measurements Intervals [place] Rate: 85 P: 69 OR: 139 QRS: 70 QRSD: 128 T: 38 QT: 408 QTc: 486 Interpretive Statements Sinus rhythm Right bundle branch block Electronically Signed On 03-22-2025 20:04:[address] César Jean Baptiste Please click the below link to view image of tracing.
--- NOTE | 2025-03-18 07:24 | RADIOLOGY REPORT ---
CHEST RADIOGRAPH Indication: CP Technique: Single frontal view of the chest was obtained Comparison: DI CHEST,SINGLE VIEW on DOS: 02/06/24 FINDINGS: Lines and Tubes: None Lungs: No focal consolidation. Pleura: No effusion. No pneumothorax. Cardiomediastinal contours: Unremarkable Bones: No acute osseous abnormality. IMPRESSION: 1. No acute cardiopulmonary disease.
--- NOTE | 2025-03-18 07:35 | Physician Documentation ---
History of Present Illness ~ Chief Complaint: Chest Pain Stated Complaint: CHEST PAIN Time Seen by MD: 07:34 Primary Medical Doctor: [facility] Source: family () HPI 64 yom h/o CAD s/p PCI last 2015, DM2, HTN, HLD, COPD, prior Tobacco use p/w chest pressure. Woke him from sleep at 330 am. feels like something sitting on his chest. Has not taken any nitro ("It doesn't work"). No SOB. No cough or fevers. Medication Reconciliation Allergies: Coded Allergies: venom-honey bee (Unverified Allergy, Severe, Breathing problems and localized swelling, 02/06/24) Scheduled Aspirin (Aspirin EC), 1 TABLET PO DAILY, (Reported) Carvedilol (Carvedilol), 1 TAB PO Q12H, (Reported) Cholecalciferol (Vitamin D3) (Vitamin D3), 1 CAP PO DAILY, (Reported) Ezetimibe (Zetia), 1 TAB PO DAILY, (Reported) Lisinopril/Hydrochlorothiazide (Lisinopril-Hctz 20-12.5 mg Tab), 1 TAB PO DAILY, (Reported) Methimazole (methimazole tablet), 1 TAB PO DAILY, (Reported) Pantoprazole Sodium (Pantoprazole Sodium), 1 TAB PO BID, (Reported) Rosuvastatin Calcium* (Crestor*), 1 TABLET PO DAILY, (Reported) Tiotropium Br/Olodaterol HCl (Stiolto Respimat Inhal [place]), 2 PUFFS IH DAILY, (Reported) Scheduled PRN Nitroglycerin SL* (Nitrostat SL*), 1 TAB SL Q5MIN PRN for Chest pain Q5min PRNx3-call MD, (Reported) Tramadol HCl (Tramadol HCl), 1 TABLET PO Q6H PRN for pain, (Reported) Past Medical History Past Medical History: Angina, Coronary Artery Disease, High Cholesterol, Hypertension, Myocardial Infarction, COPD, GERD, Hernia, Diabetes, Chronic Pain, Chronic Back Pain, Anxiety Past Surgical History: angioplasty, orthopedic surgeries, other Other Past Surgical History: hernia repair Patient History: (DM Type 2) Diabetes mellitus type 2 LIVER CANCER, BONE CANCER, SMOKER No Family History of: (CABG) Coronary artery bypass grafting (CAD) Coronary arteriosclerosis (CHF) Congestive heart failure (COPD) Chronic obstructive lung disease (CVA) Cerebrovascular accident (Cancer) Malignant carcinoid tumor (DM Type1) Diabetes mellitus type 1 ([place]) Myocardial infarction (PVD) Peripheral vascular disease (TIA) Transient ischemic attack Alzheimer's disease Aortic aneurysm Asthma Cardiac arrest Hypercholesterolemia Other Past Family History: NONE Alcohol Use: Sober Drug Use: none Lives with: Spouse Lives In: Home Occupation: unemployed Review of Systems All Other Systems at this time: Reviewed and Negative Physical Exam Vital Signs: RN Vital Signs have been reviewed: Yes, Temperature: 97.3, Source: Temporal, Heart Rate: 86, Respiratory Rate: 11, BP: 197/115, Pulse Oximetry: 99, Weight: 76.900 Physical Exam well appearing no distress chest ctab no murmur abdomen soft nt neuro awake alert oriented cn2- 12 intact. no peripheral edema Progress Progress Note recheck at 833 still having chest pain despite 2 NG 852 d/w hospitalist who graciously accepts for admission Results/Orders Reviewed/noted all lab results: Yes Results/Orders Orders - SAM ADHIKARI MD Chest,Single View (03/18/25 06:46) Monitor (03/18/25 06:46) Saline Lock (03/18/25 06:46) Oxygen (03/18/25 06:46) Hs Troponin I W Calculations (03/18/25 08:46) Hs Troponin I W Calculations (03/18/25 09:46) Page Hospitalist (03/18/25 08:33) Fill Out Med Reconciliation (03/18/25 08:33) Ringers Solution, Lacted (Lactated Ringe (03/18/25 08:40) Completed Orders - SAM ADHIKARI MD Chest,Single View (03/18/25 06:46) Electrocardiogram (03/18/25 06:46) Aspirin 81mg Chew Tablet (Aspirin 81mg C (03/18/25 07:55) Nitroglycerin Sublingual Tab (Nitrostat (03/18/25 07:55) Cbc/Diff (03/18/25 08:01) Morphine 4mg/Ml Inj. (Morphine Inj.) (03/18/25 08:35) Medications Received in ER Medications (Trade) Dose Ordered Sig/Toya Route PRN Reason Start Time Stop Time Status Last Admin Dose Admin (aspirin 81MG chew tablet) 324 mg ONCE ONCE PO 03/18/25 07:55 03/18/25 07:56 DC 03/18/25 08:21 324 MG (Nitrostat SL tablet) 0.4 mg Q5MIN ONCE SL 03/18/25 07:55 03/18/25 07:56 DC 03/18/25 08:21 0.4 MG Lactated Ringer's 1,000 ml @ 1,000 mls/hr ONCE ONCE IV 03/18/25 08:40 03/18/25 09:39 03/18/25 08:42 1,000 MLS/HR Vital Signs 03/18/25 03/18/25 03/18/25 06:50 07:16 07:18 Temp 97.3 Pulse 86 Resp 16 11 B/P (MAP) 197/115 Pulse Ox 99 99 O2 Delivery Room Air* O2 Flow Rate 0 FiO2 21 Laboratory Tests Test 03/18/25 06:50 03/18/25 07:56 03/18/25 08:42 CBC Comment Chemistry Comments White Blood Count 8.6 Red Blood Count 5.14 Hemoglobin 14.7 Hematocrit 44.3 Mean Corpuscular Volume 86.2 Mean Corpuscular Hemoglobin 28.5 Mean Corpuscular Hemoglobin Concent 33.1 Red Cell Distribution Width 14.0 Platelet Count 258 Mean Platelet Volume 7.6 Neutrophils (%) (Auto) 71.2 Lymphocytes (%) (Auto) 18.0 L Monocytes (%) (Auto) 8.5 Eosinophils (%) (Auto) 1.6 Basophils (%) (Auto) 0.7 Neutrophils # (Auto) 6.1 Lymphocytes # (Auto) 1.5 Monocytes # (Auto) 0.7 Eosinophils # (Auto) 0.1 Basophils # (Auto) 0.1 Sodium Level 138 Potassium Level 4.1 Chloride Level 102 Carbon Dioxide Level 26.6 Anion Gap 9 Blood Urea Nitrogen 17 Creatinine 0.92 Estimated GFR/1.73 m2 83 BUN/Creatinine Ratio 18.5 Glucose Level 131 H Calcium Level 9.3 Troponin I High Sensitivity 7 Pro-B-Type Natriuretic Peptide < 30 Albumin 4.0 EKG/XRAY/CT/US/VASC/MRI EKG : Additional Comment EKG time 648 indication chest pain Right bundle rate NSR rate 85, normal axis no st or t wave abn Heart Score: Heart Score Response (Comments) Value History Highly Suspicious 2 EKG Repolarization Disturb 1 Age 45-64 1 Risk Factors >3 or Hx ASHD 2 Troponin Normal limit 0 Total 6 Medical Decision Making Additional info obtained from: old records Findings d/c summary 2023 echo 01/21 Normal LV size and wall thickness. Overall systolic function is normal. LVEF is 65-70%. RV is normal size and function. Elevated right heart pressures as noted above. The left atrium size is normal. Trileaflet aortic valve that appears mildly sclerotic without stenosis or insufficiency. Mild mitral valve annular calcification without stenosis or regurgitation. Tricuspid valve appears normal with trace regurgitation. Trace pericardial effusion without hemodynamic compromise. Prominent anterior epicardial fat pad is present. Differential Dx:Considerations: Include: angina, aortic dissection, chest wall pain Departure Disposition: ADMITTED INPATIENT Admitted to Inpatient Unit: to hospitalist Impression: Primary Impression: Chest pain Qualified Codes: I20.0 - Unstable angina Referrals: NO PRIMARY CARE PROVIDER (PCP) Signature Scribe Signature: na Attestation: SAM Mar MD Mar 18, 2025 07:35
[2025-03-18 08:26] LABS: MEAN PLATELET VOLUME 7.6 FL (7.4-10.4); RED CELL DISTRIBUTION WIDTH 14.0 % (11.5-14.5)
[2025-03-18 08:29] LABS: CREATININE 0.92 MG/DL (0.60-1.10); PRO BRAIN NATRIURETIC PEPTIDE < 30 PG/ML (0-125); TOTAL CARBON DIOXIDE 26.6 MMOL/L (24-32); eCRCL 65 ML/MIN; eGFR 83 ML/MIN
[2025-03-18] MEDS: ringers solution, lacted 1,000 ML IV ONE (08:42)
[2025-03-18] MEDS ORDERED: HYDROcodone/acetaminophen 10/325mg tab PO PRN (09:40)
[2025-03-18] MEDS ORDERED: mag hydrox/Alum hydrox/simeth 30ml oral suspension PO PRN (09:40)
[2025-03-18] MEDS ORDERED: magnesium hydroxide 30ml (MOM) UD suspension PO PRN (09:40)
[2025-03-18] MEDS ORDERED: magnesium Cl slow-release 64mg tablet PO PRN (09:40)
[2025-03-18] MEDS ORDERED: potassium Cl 40MEQ/1/2NS 520ml 520 ML IV PRN (09:40)
[2025-03-18] MEDS ORDERED: potassium Cl 20 mEq SR tablet PO PRN ×2 (09:40)
[2025-03-18] MEDS ORDERED: magnesium sulf-water 2g/50mL 50 ML IV PRN (09:40)
[2025-03-18] MEDS ORDERED: magnesium sulf-water 4G/100mL 100 ML IV PRN (09:40)
[2025-03-18] MEDS: morphine 4 MG/ML inj SYRINge IV ONE (10:15)
[2025-03-18] MEDS: ondansetron/PF 4mg/2ml inj IV PRN (10:16)
--- NOTE | 2025-03-18 10:35 | HISTORY AND PHYSICAL-Residence ---
History & Physical Providers to CC Resident Creating Document: JACK RIVERA, SALTY ~ History of Present Illness Reason for Admit\Complaint: chest pain and backpain. History of Present Illness This is a 64-year-old male with past history of hypertension, type 2 diabetes coronary artery disease status post 9 stents (last in 2016) ,Came to ED with chief complaint of chest pain. Patient was in his house sleeping when the chest pain started at 3:30 a.m. patient described the pain pressure , continous,severe ,graded as 10/10, radiating to back , back pain is aggravting by lying down. Chest pain was not associated with nausea vomiting, sweating, shortness of breath ,palpitations. At 6:00 a.m. when patient checked the blood pressure it was 200/100. His Atomic Process Engineer is Dr. Mclaughlin Patient had similar type of chest pain in 2016 and undergone stent 2016. Allergies: Coded Allergies: venom-honey bee (Unverified Allergy, Severe, Breathing problems and localized swelling, 02/06/24) Home Medications Home Medications Active Reported Vitamin D3 (Cholecalciferol (Vitamin D3)) 250 Mcg (72637 Unit) Capsule 1 Cap PO DAILY 30 Days Nitrostat SL* (Nitroglycerin) 0.4 Mg Tablet 1 Tab SL Q5MIN PRN Lisinopril-Hctz 20-12.5 mg Tab (Lisinopril/Hydrochlorothiazide) 20 Mg-12.5 Mg Tablet 1 Tab PO DAILY Stiolto Respimat Inhal [place] (Tiotropium Br/Olodaterol HCl) 2.5 Mcg-2.5 Mcg/Actuation Mist.inhal 2 Puffs IH DAILY methimazole tablet (Methimazole) 5 Mg Tablet 1 Tab PO DAILY 30 Days Zetia (Ezetimibe) 10 Mg Tablet 1 Tab PO DAILY 30 Days Tramadol HCl 50 Mg Tablet 1 Tablet PO Q6H PRN Crestor* (Rosuvastatin Calcium) 40 Mg Tablet 1 Tablet PO DAILY Pantoprazole Sodium 40 Mg Tablet.dr 1 Tab PO BID Aspirin EC (Aspirin) 81 Mg Tablet.dr 1 Tablet PO DAILY Past Medical History Past Medical History Coronary artery disease status post 9 stents. Hypertension Type 2 diabetes COPD Chronic back pain Hyperthyroidism Past Surgical History Surgical History Comment Meniscal surgeries done in both knees TURP done Inguinal hernia surgeries Family History Family History: (DM Type 2) Diabetes mellitus type 2 FH: diabetes mellitus GRANDFATHER OR GRANDMOTHER FH: ovarian cancer MOTHER, Name: KAYLEEN WHITEHEAD, , Age: 58, Cause: Cancer FH: prostate cancer GRANDFATHER OR GRANDMOTHER LIVER CANCER, BONE CANCER, SMOKER No Family History of: (CABG) Coronary artery bypass grafting (CAD) Coronary arteriosclerosis (CHF) Congestive heart failure (COPD) Chronic obstructive lung disease (CVA) Cerebrovascular accident (Cancer) Malignant carcinoid tumor (DM Type1) Diabetes mellitus type 1 ([place]) Myocardial infarction (PVD) Peripheral vascular disease (TIA) Transient ischemic attack Alzheimer's disease Aortic aneurysm Asthma Cardiac arrest Hypercholesterolemia Past Social History Social History Comment Quit smoking 17 years ago before that used to smoke half a pack to two packs a day for more than 20 years. Quit drinking alcohol 27 years ago Quit marjiuana, coacaine, methamphetamine 27 years ago. Lives in home with . Alcohol Use: Sober Drug Use: None Lives with: Spouse Lives In: Home Occupation: unemployed ROS All Other Systems: Reviewed and Negative Constitutional: Denies: no symptoms reported, see HPI, chills, diaphoresis, fever, malaise, weakness, other Eyes: Denies: no symptoms reported, see HPI, pain, discharge, blurred vision, double vision, itching, photophobia, redness, tearing, other ENT: Denies: no symptoms reported, see HPI, ear pain, ear bleeding, ear discharge, hearing loss, ear ringing, nose pain, nose bleeding, nose congestion, nose discharge, throat pain, throat swelling, voice change, mouth pain, mouth bleeding, mouth swelling, other Respiratory: Denies: no symptoms reported, see HPI, cough, orthopnea, shortness of breath, SOB with exertion, SOB at rest, stridor, wheezing, hemoptysis, pain with breathing, other Cardiovascular: Reports: chest pain Gastrointestinal: Denies: no symptoms reported, see HPI, abdomen distended, abdominal pain, nausea, vomiting, diarrhea, constipated, melena, hematemesis, hematochezia, rectal bleeding, rectal pain, dysphagia, poor appetite, poor fluid intake, other Genitourinary: Denies: no symptoms reported, see HPI, burning, discharge, dysuria, frequency, flank pain, hematuria, incontinence, pain, decreased urine output, urgency, other Male Genitalia: Denies: no symptoms reported, see HPI, penile discharge, penile sore, testicular pain, testicular swelling, other Neurological: Denies: no symptoms reported, see HPI, speech problem, headache, dizziness, fainting, tingling, left sided numbness, right sided numbness, left sided weakness, right sided weakness, problems walking, unable to move lower ext, unable to move upper ext, petit mal seizures, tonic-clonic seizures, cognitive dysfunction, other Musculoskeletal: Denies: no symptoms reported, see HPI, pain, swelling, back pain, gout, joint pain, joint swelling, muscle pain, muscle swelling, muscle stiffness, neck pain, other Integumentary: Denies: no symptoms reported, see HPI, rash, itching, lesions, lumps, bruise(s), wound(s), laceration(s), dryness, change in color, other Allergic/Immunologic: Denies: no symptoms reported, see HPI, hives, itching, frequent infections, difficulty healing, other Endocrine: Denies: no symptoms reported, see HPI, excessive sweating, flushing, intolerance to cold, intolerance to heat, increased hunger, increased thrist, increased urine, unexplained weight gain, unexplained weight loss, other Psychiatric: Denies: no symptoms reported, see HPI, depression, anxiety, sleeplessness, hopeless, suicidal, hallucinations, other Exam Vitals: Vital Signs Date Time Temp Pulse Resp B/P (MAP) Pulse Ox O2 Delivery O2 Flow Rate FiO2 03/18/25 08:52 80 10 102/78 (86) 96 0 03/18/25 07:16 Room Air* 21 03/18/25 06:50 97.3 General: General: General: Awake and Alert, no acute distress. HEENT: Conjunctiva pink, Sclera clear, Mucus Membranes moist. Neck: Supple without masses and tenderness. Resp: Unlabored. Lungs clear to auscultation bilaterally. Heart: Regular Rate and rhythm, normal S1 and S2 without murmur, rub or gallop. Abdomen: Soft and tender left lower quadrant, no guarding and rigidity. Extremities: No cyanosis,clubbing or edema. Skin: Warm and Dry. Diagnostic Data Last Recorded Lab Results: 03/18/25 0756 03/18/25 0756 Advance Care Planning Advanced Care plannin - 30 Minutes (I spent 17 minutes in discussing various measures rescucitating measures, the patient choose to a be a full code.) Additional Plan This is a 64-year-old male with past history of hypertension, type 2 diabetes coronary artery disease status post 9 stents (last in 2016). Patient was in his house when the chest pain started at 3:30 a.m, which was severe, pressure like chest pain radiating to back. History of CAD status post 9 stents. angina equivalent chest pain troponin negative ECG non significant recevied 324 mg of aspirin in ED started on aspirin 81 mg daily started statin on 40 mg daily. nitroglycerin 0.4 mg prn Patient is on telemetry monitoring. Echocardiogram ordered. Lexiscan ordered Hypertension Hydrochrothiazide 12.5 mg/lisinopril 20 mg metoprolol 25 mg BID. Diabetes Mellitus HbA1c 6.8 start patient on low supplement protocol Hyperlipidemia Eztemibe 10 mg daily and atorvastatin 40 mg lipid panel ordered Hyperthyroidism Methimazole 5 mg daily. TSH ordered COPD,not in acute excaerbation. Patient is taking 2 inhaler puffs daily and his copd is controlled no shortness of breath. DVT prophylaxis enoxaparin 40 mg Code Status: Full code Diet: Heart Healthy diet Jack Rivera Internal Medicine Resident PGY1 Patient is seen and examined agree with the above I am going to order an aspirin statin and a Lexiscan Date of Service: Mar 18, 2025 Billing Provider: ERIC SON MD Common Visit Codes: [id number] INP/OBS CARE (HIGH) JACK RIVERA, RES Mar 18, 2025 10:35 ERIC SON MD Mar 19, 2025 11:44
[2025-03-18 10:46] LABS: PRO BRAIN NATRIURETIC PEPTIDE < 30 PG/ML (0-125)
[2025-03-18] MEDS ORDERED: metoprolol tartrate 1mg/ml inj IV PRN (12:05)
[2025-03-18] MEDS ORDERED: regadenoson 0.4mg/5ml syringe IV PRN (12:05)
[2025-03-18] MEDS ORDERED: aminophylline 250mg/10ml inj. IV PRN (12:05)
[2025-03-18] MEDS: HYDROcodone/acetaminophen 5mg/325mg tablet PO PRN (12:25)
[2025-03-18] MEDS ORDERED: dextrose 50%-water 50ml dispensing syringe IV PRN ×2 (15:45)
[2025-03-18] MEDS ORDERED: glucagon, human recombinant 1mg kit SUBCUT PRN (15:45)
[2025-03-18] MEDS ORDERED: DEXTROSE 15 GM of carb/4 tabs (each vial/BOTTLE has 4 tablets) PO PRN ×2 (15:45)
[2025-03-18] MEDS ORDERED: ipratropium/albuterol 3ml nebule NEB PRN (15:50)
[2025-03-18] MEDS: INSULIN LISPRO 100 UNIT/ML INSULN.PEN MULTI-DOSE SQ SCH (17:00)
[2025-03-18] MEDS: metoprolol succinate 25mg (24-HOUR) SR. Tablet PO SCH (18:17)
[2025-03-18] MEDS: docusate sod 100mg capsule PO SCH (20:00)
[2025-03-18] MEDS: K and/or MAG REPLACEMENT MC SCH (20:00)
[2025-03-19 02:00] VITALS: BP 124/75; PULSE 76; RESP 14; TEMP 97.1; O2SAT 96
[2025-03-19 06:28] LABS: MEAN PLATELET VOLUME 7.6 FL (7.4-10.4); RED CELL DISTRIBUTION WIDTH 14.0 % (11.5-14.5)
[2025-03-19 06:30] VITALS: BP 140/87; PULSE 77; RESP 14; TEMP 97.8; O2SAT 98
[2025-03-19 06:41] LABS: INR 1.0 INR
[2025-03-19 06:49] LABS: CHOL/HDL RATIO 2.6 (0.00-4.99); CREATININE 0.96 MG/DL (0.60-1.10); LDL CHOLESTEROL 68 MG/DL (50-100); TOTAL CARBON DIOXIDE 31.5 MMOL/L (24-32); eCRCL 63 ML/MIN; eGFR 79 ML/MIN
[2025-03-19] MEDS: enoxaparin 40mg/0.4ml syringe SUBCUT SCH (07:36)
[2025-03-19 10:30] VITALS: BP 111/82; PULSE 86; RESP 12; TEMP 97.8; O2SAT 96
--- NOTE | 2025-03-19 17:40 | DISCHARGE SUMMARY-Residence ---
Discharge Summary Providers to CC Resident Creating Document: STEPHANIE RIVERA RES ~ Discharge Summary Admission Diagnosis: chest pain Hospital Course DATE OF ADMISSION: 03/18/2025 DATE OF AMA: 03/19/2025 Labs at the time of AMA WBC: 10 RBC: 5.25 Platelet count: 245 Creatinine 0.96 Pro Bnp <30 done on 03/18/2025. Imaging findings Chest X-ray: No acute cardiopulmonary disease. Echocardiogram. Normal LV size and wall thickness. Overall systolic function is normal. LVEF is 65-70%. Discharge Diagnosis\Comment: Chest pain, non cardiac vs cardiac. ACS could not be ruled out. Operations\Procedures: none Consultants: none Complications: none Condition on DC: Stable Discharge Summary: HPI This is a 64-year-old male with past history of hypertension, type 2 diabetes coronary artery disease status post 9 stents (last in 2016) ,Came to ED with chief complaint of chest pain. Patient was in his house sleeping when the chest pain started at 3:30 a.m. patient described the pain pressure , continous,severe ,graded as 10/10, radiating to back , back pain is aggravting by lying down. Chest pain was not associated with nausea vomiting, sweating, shortness of breath ,palpitations. At 6:00 a.m. when patient checked the blood pressure it was 200/100. His Buttonhole Facer is Dr. Mclaughlin Patient had similar type of chest pain in 2016 and undergone stent 2016. Hospital Course Patient was admitted for angina equivalent chest pain, tropnin were negative, ecg was not signicant.Recevied 324 mg of aspirin in ER initially and put on aspirin 81 mg daily, was also prescribed statin 40 mg daily. Echocardiogram was ordered which showed EF of 65-70%, lexiscan was also ordered but patient denied. ACS could not be ruled out. Hypertension Continued home medication on Hydrochrothiazide 12.5 mg/lisinopril 20 mg and metoprolol 25 mg BID. Diabetes Mellitus HbA1c 6.8 started patient on low insulin protocol Hyperlipidemia lipid panel were normal Eztemibe 10 mg daily and atorvastatin 40 mg Hyperthyroidism continued home medication Methimazole 5 mg daily. TSH 1.22 COPD,not in acute excaerbation. Patient is taking 2 inhaler puffs daily and his copd is controlled no shortness of breath. DVT prophylaxis was given enoxaparin 40 mg. Patient left AMA, i have explain to the patient about risk of leaving AMA but patient still decided to leave. *Problems/Diagnosis: (1) Chest pain Status: Resolved Total Time Spent on D/C: > 30 Minutes Date of Service: Mar 19, 2025 Billing Provider: ERIC SON MD Common Visit Codes: 16076-TSD/OBS DISCH DAY >30min STEPHANIE RIVERA, RES Mar 19, 2025 17:38 ERIC SON MD Mar 20, 2025 10:21
--- NOTE | 2025-03-19 18:23 | CARDIOLOGY REPORT ---
APPROVED REPORT EXAM: Comprehensive 2D, Doppler, and color-flow Echocardiogram. Patient Location: 3014 A Blood Pressure: 111/82 mmHg Heart Rate: 80 bpm Rhythm: SINUS Indications CHEST PAIN STENTS X9 (LAST IN 2015) Chute Feeder: Osmani Mir MD Previous echo: 01/04/24 [facility] (EF 65-70%, trace TR, trace PE w/o compromise, prominent anterior epicardi al fat pad) 2D Dimensions RVDd 3.1 cm LA Diam4.3 cm IVSd 1.1 (0.7-1.1cm) LVDd 4.1 cm PWd 1.2 (0.7-1.1cm) RA Major3.8 cm IVSs 1.2 (0.8-1.2cm) RA Minor3.1 cm LVDs 2.3 (2.5-4.0cm) PWs 1.3 (0.8-1.2cm) LVOT Diameter 1.88 (1.8-2.4cm) LVEF(%) 70.1 (>50%) Ao Asc Diam.2.71 cmFS (%) 43.5 % SV 56.2 ml CO 4.4 L/min M-Mode Dimensions Left Atrium(MM) 3.91 (2.5-4.0cm) Aortic Root 2.97 (2.2-3.7cm) Aortic Cusp Exc 1.94 (1.5-2.0cm) MV EPSS 0.4 (<0.5cm) Biplane 2D LA Volumes LA ESV Index 18.52 mL/m2 Aortic Valve AoV Peak Renny. 132.8 cm/s AoV VTI 22.6 cm AO Peak GR. 7.1 mmHg AO Mean GR. 4 mmHg LVOT VTI 17.85 cm LVOT Peak Renny. 106.6 cm/s ADAM(VTI)/BSA 2.18 cm2/m2 ADAM (VTI) 2.18 cm2 Mitral Valve MV E Velocity 74.4 cm/s MV Peak Gr. 3 mmHg MV DECEL TIME 300 ms MV A Velocity 96.1 cm/s MV PHT 44 ms E/A Ratio 0.8 MVA (PHT) 5.00 cm2 MV VMax91.6 cm/s TDI Medial E' P. V 8.92 cm/s E/Medial E' 8.3 Tricuspid Valve TR P. Velocity 247 cm/s RAP ESTIMATE 10 mmHg TR Peak Gr. 24 mmHg RVSP 34 mmHg Pulmonary Vein S1 Velocity 56.1 cm/s D2 Velocity 60.6 cm/s PVa Ollbkbcw00.4 cm/s PVa [id number] msec LEFT VENTRICLE Normal LV size and wall thickness. Overall systolic function is normal. LVEF is 65-70%. RIGHT VENTRICLE RV is normal size and function. RVSP is estimated at 34 mmHg. Thickened RV free wall. ATRIA LA size is normal. RA size is normal. AORTIC VALVE Trileaflet AV appears mildly sclerotic without stenosis or insufficiency. MITRAL VALVE Mild MV annular calcification without stenosis. Trace regurgitation. TRICUSPID VALVE TV appears structurally normal with trace regurgitation. PULMONIC VALVE Normal PV without stenosis, physiologic insufficiency. GREAT VESSELS The aortic root is normal in size. The ascending aorta is normal in size. PERICARDIUM Trace circumferential pericardial effusion without evidence of hemodynamic compromise. Prominent ante rior epicardial fat pad is present. Other Information Study Quality: Adequate Conclusion Normal LV size and wall thickness. Overall systolic function is normal. LVEF is 65-70%. RV is normal size and function. RVSP is estimated at 34 mmHg. Thickened RV free wall. LA size is normal. Trileaflet AV appears mildly sclerotic without stenosis or insufficiency. Mild MV annular calcification without stenosis. Trace regurgitation. TV appears structurally normal with trace regurgitation. Trace circumferential pericardial effusion without evidence of hemodynamic compromise. Prominent ante rior epicardial fat pad is present.
[2025-03-19] MEDS ORDERED: metoprolol succinate 25mg (24-HOUR) SR. Tablet PO SCH (20:00)
[2025-03-19] MEDS ORDERED: pantoprazole 40mg Tablet.DR PO SCH (20:00)
[2025-03-20] MEDS ORDERED: non-formulary drug (Cholecalciferol (Vitamin D3) (Vitamin D3) 1 CAP) PO SCH (08:00)
[2025-03-20] MEDS ORDERED: Tiotropium Br/Olodaterol HCl (Stiolto Respimat Inhal Spray) IH SCH (08:00)
== END 2025-03-19 11:10 | disposition left against medical advice (07) | DRG 311 ==
LOC: ER 06:45 → ED HOLD 08:57 → UNDOADMIN 09:29 → EDBEDREQ 09:44 → ED HOLD 11:12 → PCU 3S 11:12 → UNDODISIN 03-19 11:10
PROVIDERS: ADMIT Internal Medicine; ATTEND Internal Medicine
DX: I24.9 Acute ischemic heart disease, unspecified (principal); I25.110 Atherosclerotic heart disease of native coronary artery with unstable angina pectoris; J44.89 Other specified chronic obstructive pulmonary disease; F41.9 Anxiety disorder, unspecified; E11.9 Type 2 diabetes mellitus without complications; G89.29 Other chronic pain; I10 Essential (primary) hypertension; K21.9 Gastro-esophageal reflux disease without esophagitis; E78.5 Hyperlipidemia, unspecified; E05.90 Thyrotoxicosis, unspecified without thyrotoxic crisis or storm; I25.2 Old myocardial infarction; Z79.4 Long term (current) use of insulin; Z85.05 Personal history of malignant neoplasm of liver; Z87.891 Personal history of nicotine dependence; Z95.1 Presence of aortocoronary bypass graft; Z91.030 Bee allergy status; Z56.0 Unemployment, unspecified; Z53.29 Procedure and treatment not carried out because of patient's decision for other reasons
CPT/HCPCS: 36415; 71045; 80048; 80061; 80076; 82948; 83036; 83690; 83735; 83880; 84132; 84443; 84484; 85025; 85610; 87081; 93005; 93306; 94760; 96361; 96374; 96375; 99285; G0378; J1815; J2270; J2405; J7120